=== PATIENT | female | born 1955 | race Caucasian/White ===

== ENCOUNTER 2016-04-07 13:00 | Outpatient (CLI) | payer MEDICARE, SELFPAY | END 2016-04-07 13:20 | disposition home or self-care (01) | PROVIDERS: Visit Provider Internal Medicine Adolescent Medicine | DX: T82.7XXA Infection and inflammatory reaction due to other cardiac and vascular devices, implants and grafts, initial encounter (principal); Z48.01 Encounter for change or removal of surgical wound dressing | CPT/HCPCS: G0463 ==

== ENCOUNTER 2016-04-09 11:02 | Emergency (ER) | payer MEDICARE, SELFPAY | END 2016-04-09 13:06 | disposition home or self-care (01) | PROVIDERS: Emergency Provider General Practice; Family Provider Family Medicine; Visit Provider General Practice | DX: N18.3 Chronic kidney disease, stage 3 (moderate) (principal); I25.10 Atherosclerotic heart disease of native coronary artery without angina pectoris; K21.9 Gastro-esophageal reflux disease without esophagitis; I10 Essential (primary) hypertension; J44.9 Chronic obstructive pulmonary disease, unspecified | CPT/HCPCS: 70450; 71010; 80053; 80305; 81001; 82550; 82553; 84484; 85025; 85610; 93005; 99283 ==